=== PATIENT | female | born 2005 | race Caucasian/White ===

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

== ENCOUNTER 2024-11-14 21:15 | Emergency (ER) | payer BC, SELFPAY ==
[2024-11-14 21:23] VITALS: BP 133/61; PULSE 84; RESP 14; TEMP 36.8; O2SAT 98; BMI 25.6
[2024-11-14 21:42] LABS: HCG Qualitative Urine. Negative (Negative)
[2024-11-14 22:14] LABS: Bilirubin Urine Negative (Negative); Blood Urine Negative (Negative); Glucose Urine UA Negative (Normal); Ketones Urine Negative (Negative); Leukocyte Esterase Urine Negative (Negative); Nitrate Urine Negative (Negative); Protein Urine Negative (Negative); Specific Gravity, Urine 1.011 (1.005-1.030); Urine Appearance Clear (CLEAR); Urine Color Yellow (Yellow); Urobilinogen Urine 0.2 mg/dL (Negative)
[2024-11-14 22:17] LABS: Add Urine Microscopic? YES; Bacteria Urine Trace /hpf; Hyaline Casts Urine 0-4 /lpf; RBC Urine 0-2 /hpf (0-2); Squamous Epithelial Cell Urine 0-5 /hpf (0-5); WBC Urine 0-5 /hpf (0-5)
[2024-11-14 22:21] LABS: Basophils % 0.5 %; Eosinophils # 0.2 10^3/uL (0.0-0.8); Eosinophils % 1.7 %; Hematocrit 38.7 % (36-47); Lymphocytes % 34.2 %; Mean Corpuscular HGB Conc 33.1 g/dL (30-55); Mean Corpuscular Hemoglobin 28.6 pg (27-33); Mean Corpuscular Volume 86.6 fl (85-98); Mean Platelet Volume 9.6 fL (7.4-10.4); Monocytes # 0.8 10^3/uL (0.2-0.9); Monocytes % 8.7 %; Neutrophils # 4.73 10^3/uL (1.8-8.0); Neutrophils % 54.7 %; Nucleated Red Blood Cells % 0 %; Platelet Count 225 10^3/cmm (157-399); Red Blood Count 4.47 10^6/uL (3.85-5.65); Red Cell Distribution Width 12.5 % (12.1-15.1); White Blood Count 8.65 10^3/uL (4.5-13.0)
[2024-11-14 22:44] LABS: Alanine Aminotransferase 13 U/L (0-33); Albumin Level 4.5 g/dL (3.5-5.2); Alkaline Phosphatase 50 U/L (35-105); Anion Gap 13.7 (5-19); Aspartate Amino Transferase 16 U/L (0-32); Blood Urea Nitrogen 8 mg/dL (6-20); Calcium 9.3 mg/dL (8.5-10.5); Carbon Dioxide 25 mmol/L (22-29); Chloride 103 mmol/L (98-107); Creatinine Clr Calc Pharmacy 157.1401; Globulin 3.2 g/dL (1.3-4.6); Glomerular Filtration Rate 157.3 mL/min (90-130); Glucose 80 mg/dL (65-115); Osmolality Calculated 283 mOsm/kg (285-295); Potassium 3.7 mmol/L (3.5-5.1); Sodium 138 mmol/L (136-145); Total Bilirubin 0.2 mg/dL (0.15-1.2); Total Protein 7.7 g/dL (6.6-8.7)
[2024-11-14 23:40] VITALS: BP 123/81; PULSE 69; O2SAT 100
--- NOTE | 2024-11-14 23:47 | CTR_ITS ---
PROCEDURE INFORMATION: Exam: CT Abdomen And Pelvis With Contrast Exam date and time: 11/15/2024 12:10 AM Age: 19 years old Clinical indication: Abdominal pain; Localized; Right lower quadrant (rlq); Additional info: Rlq pain TECHNIQUE: Imaging protocol: Computed tomography of the abdomen and pelvis with contrast. Radiation optimization: All CT scans at this facility use at least one of these dose optimization techniques: automated exposure control; mA and/or kV adjustment per patient size (includes targeted exams where dose is matched to clinical indication); or iterative reconstruction. Contrast material: OMNI 350; Contrast volume: 100 ml; Contrast route: INTRAVENOUS (IV); COMPARISON: No relevant prior studies available. RADIATION DOSE METRICS: Total DLP (mGy-cm): 365.1 FINDINGS: Liver: No discrete liver lesions are apparent. Smooth hepatic contour. Gallbladder and biliary ducts: No gallbladder distension or inflammation. No calcified gallstones are apparent. No common bile duct abnormality is evident. Pancreas: No evidence of pancreatitis. No ductal dilation. Spleen: Spleen is within normal limits. Adrenal glands: Adrenal glands are within expected limits. Kidneys and ureters: No renal or ureteral calculi are identified. No hydronephrosis. Stomach and bowel: Small bowel is normal caliber. No obstruction. Large bowel within normal limits. No inflammatory wall thickening or abnormal bowel dilatation. Appendix: Appendix is clearly visualized and appears normal. Intraperitoneal space: No free air. No significant fluid collection. Vasculature: No abdominal aortic aneurysm. Lymph nodes: No pathologically enlarged lymph nodes by CT size criteria. Urinary bladder: Unremarkable as visualized. Reproductive: Uterus unremarkable. Involuting left ovarian cyst measuring 1.8 cm. Right ovary unremarkable. Bones/joints: No acute osseous abnormalities. Soft tissues: Unremarkable. CT/CT abdomen pelvis w con* [id number] IMPRESSION: 1. No acute abdominal or pelvic abnormalities are identified. Specifically, no evidence of appendicitis. 2. Involuting left ovarian 1.8 cm cyst.
--- NOTE | 2024-11-15 00:10 | ED_ITS ---
HPI - Abdominal Pain 2 General: Chief Complaint: Abdominal Pain Stated Complaint: Lower R ABD N/V Fever Time Seen by Provider: 11/14/24 22:58 Source: patient Mode of arrival: ambulatory Limitations: no limitations History of Present Illness: 19yo female presents with right lower qu adrant abdominal pain that has been ongoing since yesterday and worsening. Patient states she has had nausea and 1 episode of vomiting. States she has a history of GERD and has not been eating like she typically would, but has not had symptoms like this. States that she does have increased pain with certain movements. She denies dysuria, possibility of , known fever, previous abdominal surgeries, any other concern at this time. Associated Symptoms: Reports nausea and vomiting; Denies chills, constipation, dysuria and fever(s) Related Data Home Medications ?Medication ?Instructions ?Recorded ?Confirmed No Known Home Medications 06/09/2305/29 Allergies Allergy/AdvReac Type Severity Reaction Status Date / Time No Known Allergies Allergy Verified 11/14/24 21:27 Review of Systems 2 Const: Denies: fever(s), chills or body aches Card: Denies: chest pain Resp: Denies: dyspnea GI: Reports: abdominal pain, nausea and vomiting; Denies: constipation : Denies: flank pain, difficulty voiding or dysuria Physical Exam 2 Const: COMMON NORMALS: no acute distress, patient oriented x3 and alert G ENERAL APPEARANCE: cooperative ORIENTATION/CONSCIOUSNESS: Yes awake OTHER: Patient is sitting upright on the stretcher no acute distress. She is able to give history with no difficulty. She is interactive with exam appropriately. No family is at bedside at time of exam HENMT: COMMON NORMALS: normocephalic and atraumatic HEAD & SCALP: n ormocephalic and atraumatic Chest: CHEST: Yes Symmetrical chest wall rise Resp: COMMON NORMALS: normal respiratory effort EFFORT & INSPECTION: Yes able to speak in complete sentences Cardio: COMMON NORMALS: regular rate and regular rhythm RATE: regular rate RHYTHM: regular rhythm GI: COMMON NORMALS: Soft to palpation PALPATION: Yes Soft to palpation, Yes Tenderness to palpation present (GI) Details: RLQ and other (umbilicus, epigastric), No Guarding due to palpation present (GI) and No Rigid due to palpation : COMMON NORMALS: Yes no CVA tenderness BLADDER/KIDNEY EXAM: Yes no CVA tenderness Back/Pelvis: COMMON NORMALS: no CVA tenderness Extremity: COMMON NORMALS: full ROM Neuro: COMMON NORMALS: patient oriented x3 SENSORIUM/ORIENTATION: Yes alert Psych: COMMON NORMALS: cooperative Course 2 Vital Signs: Vital signs: Vital Signs Temperature 98.2 F 11/14/24 21:23 Pulse Rate 69 11/14/24 23:40 Respiratory Rate 14 11/14/24 21:23 Blood Pressure 123/81 11/14/24 23:40 Pulse Oximetry 100 11/14/24 23:40 Oxygen Delivery Me thod Room Air 11/14/24 23:40 MDM - Abdominal Pain Medical Decision Making 19yo female presents with right lower quadrant abdominal pain that has been ongoing since yesterday and worsening. Patient has had nausea with 1 episode of vomiting. She denies fever, dysuria, constipation, previous abdominal surgeries. Patient is nontoxic in appearance. Vital signs are stable. Differential diagnoses include but are not limited to: Appendicitis, ovarian cyst, constipation, viral illness Labs obtained while awaiting room placement. No leukocytosis, white blood cell count is 8.65. No indication of anemia, hemoglobin is 12.8. No electrolyte, renal, or hepatic abnormalities noted. UA with an elevated pH, otherwise unremarkable. Proceeding with CTAP for evaluation of the right lower quadrant abdominal pain with nausea and vomiting. No acute abdominal or pelvic abnormality noted on the CT scan. Involuting left ovarian 1.8 cm cyst noted. Discussed findings with patient. Patient did receive ketorolac after CT scan to help with the discomfort. Discussed this could be related to a viral illness. Recommend she continue to monitor symptoms closely. Vies follow-up with primary care, call in 1 to 2 days with an update of symptoms and to discuss a recheck. Return precautions provided. Patient states understanding and has no further questions or concerns at this time. Differential Diagnosis Likely abdominal pain and acute appendicitis Medical Records I reviewed the patient's medical records. Lab Data I reviewed the patient's lab results. 11/14/24 22:12 11/14/24 22:12 Labs/Radiology: Radiology Impressions Abdomen/Pelvis CT 11/14/24 23:47 IMPRESSION: 1. No acute abdominal or pelvic abnormalities are identified. Specifically, no evidence of appendicitis. 2. Involuting left ovarian 1.8 cm cyst. Laboratory Results WBC 8.65 10^3/uL (4.5-13.0) 11/14/24 22:12 RBC 4.47 10^6/uL (3.85-5.65) 11/14/24 22:12 Hgb 12.80 g/dL (12.4-14.8) 11/14/24 22:12 Hct 38.7 % (36-47) 11/14/24 22:12 MCV 86.6 fl (85-98) 11/14/24 22:12 MCH 28.6 pg (27-33) 11/14/24 22:12 MCHC 33.1 g/dL (30-55) 11/14/24 22:12 RDW 12.5 % (12.1-15.1) 11/14/24 22:12 Plt Count 225 10^3/cmm (157-399) 11/14/24 22:12 MPV 9.6 fL (7.4-10.4) 11/14/24 22:12 Neut % (Auto) 54.7 % 11/14/24 22:12 Lymph % (Auto) 34.2 % 11/14/24 22:12 Imperial % (Auto) 8.7 % 11/14/24 22:12 Eos % (Auto) 1.7 % 11/14/24 22:12 Baso % (Auto) 0.5 % 11/14/24 22:12 Neut # (Auto) 4.73 10^3/uL (1.8-8.0) 11/14/24 22:12 Lymph # (Auto) 3.0 10^3/uL (1.5-6.5) 11/14/24 22:12 Imperial # (Auto) 0.8 10^3/uL (0.2-0.9) 11/14/24 22:12 Eos # (Auto) 0.2 10^3/uL (0.0-0.8) 11/14/24 22:12 Baso # (Auto) 0.0 10^3/uL (0.0-0.1) 11/14/24 22:12 Nucleated RBC % (auto) 0 % 11/14/24 22:12 Nucleated RBCs # 0.0 /100WBC 11/14/24 22:12 Sodium 138 mmol/L (136-145) 11/14/24 22:12 Potassium 3.7 mmol/L (3.5-5.1) 11/14/24 22:12 Chloride 103 mmol/L (98-107) 11/14/24 22:12 Carbon Dioxide 25 mmol/L (22-29) 11/14/24 22:12 Anion Gap 13.7 (5-19) 11/14/24 22:12 BUN 8 mg/dL (6-20) 11/14/24 22:12 Creatinine 0.5 mg/dL (0.5-0.9) 11/14/24 22:12 GFR Calculation 157.3 mL/min (90-130) H 11/14/24 22:12 Glucose 80 mg/dL (65-115) 11/14/24 22:12 Calculated Osmolality 283 mOsm/kg (285-295) L 11/14/24 22:12 Calcium 9.3 mg/dL (8.5-10.5) 11/14/24 22:12 Total Bilirubin 0.2 mg/dL (0.15-1.2) 11/14/24 22:12 AST 16 U/L (0-32) 11/14/24 22:12 ALT 13 U/L (0-33) 11/14/24 22:12 Alkaline Phosphatase 50 U/L (35-105) 11/14/24 22:12 Total Protein 7.7 g/dL (6.6-8.7) 11/14/24 22:12 Albumin 4.5 g/dL (3.5-5.2) 11/14/24 22:12 Globulin 3.2 g/dL (1.3-4.6) 11/14/24 22:12 HCG, Qual Negative (Negative) 11/14/24 21:34 Urine Color Yellow (Yellow) 11/14/24 21:34 Urine Appearance Clear (CLEAR) 11/14/24 21:34 Urine pH 8.0 (5-7) A 11/14/24 21: Ur Specific Perry 1.011 (1.005-1.030) 11/14/24 21:34 Urine Protein Negative (Negative) 11/14/24 21:34 Urine Glucose (UA) Negative (Normal) 11/14/24 21:34 Urine Ketones Negative (Negative) 11/14/24 21: Urine Blood Negative (Negative) 11/14/24 21:34 Urine Nitrate Negative (Negative) 11/14/24 21:34 Urine Bilirubin Negative (Negative) 11/14/24 21:34 Urine Urobilinogen 0.2 mg/dL (Negative) 11/14/24 21:34 Ur Leukocyte Esterase Negative (Negative) 11/14/24 21:34 Urine RBC 0-2 /hpf (0-2) 11/14/24 21:34 Urine WBC 0-5 /hpf (0-5) 11/14/24 21:34 Ur Squamous Epith Cells 0-5 /hpf (0-5) 11/14/24 21:34 Amorphous Sediment Not Reportable 11/14/24 21:34 Urine Bacteria Trace /hpf (NONE) 11/14/24 21:34 Hyaline Casts 0-4 /lpf H 11/14/24 21:34 All radiology interpretation(s) finalized by discharge Discharge Plan Discharge Patient Disposition: Home Clinical Impression: Abdominal pain Qualifiers: Abdominal location: right lower quadrant Qualified Code(s): R10.31 - Right lower quadrant pain Condition: Stable Prescriptions: No Action No Known Home Medications Discharge Orders: Discharge ED (Routine); Ordered 11/15/24 Ordered By: Man Ashford Discharge Diet: Usual diet Discharge Activity: Increase activity as tolerated Patient Instructions: Abdominal Pain (ED), Pain Management Activity Restrictions/Additional Instructions: No sign of appendicitis or acute abnormality noted on your labs today This may be a viral illness. Please monitor your symptoms for any rapid worsening Follow-up with primary care, call in the next 1 to 2 days with an update of symptoms and to discuss a recheck. Return to the emergency department if any rapid worsening symptoms, onset of fever associated with worsening, and as needed. 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
[2024-11-15] MEDS: iohexol 350 mg/mL 500 mL Btl (per mL) IV (00:16)
[2024-11-15] MEDS: ketorolac 30 mg/mL INJ IVP (01:33)
== END 2024-11-15 01:39 | disposition home or self-care (01) ==
PROVIDERS: Emergency Medicine; Emergency Provider Nurse Practitioner
DX: R10.31 Right lower quadrant pain (principal)
CPT/HCPCS: 36415; 74177; 80053; 81001; 81025; 85025; 96374; 99285; J1885